=== PATIENT | male | born 1980 | race Caucasian/White ===

== ENCOUNTER 2020-05-04 12:16 | Emergency (ER) | payer BC, OTHER ==
[~2020-05-04] VITALS: Ht 182 cm; Wt 82.0 kg
--- NOTE | 2020-05-04 12:50 | NUR ---
PT REFUSING COVID SCREENING AT THIS X
[2020-05-04 12:58] LABS: BASOPHILS % (AUTO) 0 % (0-10); EOSINOPHILS # (AUTO) 0.2 10^3/uL (0.0-0.3); EOSINOPHILS % (AUTO) 3 % (0-10); HEMATOCRIT 44 % (40-54); LYMPHOCYTES # (AUTO) 2.2 X 10^3 (1.0-4.0); LYMPHOCYTES % (AUTO) 33 % (12-44); MEAN CORPUSCULAR HEMOGLOBIN 30 PG (25-34); MEAN CORPUSCULAR HGB CONC 35 G/DL (32-36); MEAN CORPUSCULAR VOLUME 88 FL (80-99); MEAN PLATELET VOLUME 9.5 FL (7.4-10.4); MONOCYTES # (AUTO) 0.6 X 10^3 (0.0-1.0); MONOCYTES % (AUTO) 9 % (0-12); NEUTROPHILS # (AUTO) 3.6 X 10^3 (1.8-7.8); NEUTROPHILS % (AUTO) 54 % (42-75); PLATELET COUNT 264 10^3/uL (130-400); RED CELL DISTRIBUTION WIDTH 12.5 % (10.0-14.5); WHITE BLOOD COUNT 6.6 10^3/uL (4.3-11.0)
[2020-05-04] MEDS ORDERED: OMEP10SU2 PO (12:59)
[2020-05-04] MEDS ORDERED: ASPIRIN 81 MG CHEW (CHILDREN'S ASA) PO ONE (13:00)
--- NOTE | 2020-05-04 13:00 | NUR ---
pt co of leg tiredness
--- NOTE | 2020-05-04 13:05 | ED Chest Pain ---
General Chief Complaint: Chest Pain Stated Complaint: CP;SOA History of Present Illness Date Seen by Provider: May 04, 2020 Time Seen by Provider: 12:45 Initial Comments 39 year old male presents for chest pain, pressure, and electrical shock that took his breath away. It happened at approximately 11:30 this morning and lasted 10 min. This is the 5th time he experienced these symptoms, it occurs about once a month, last time was early March. He did not seek healthcare. He drank several glasses of water this morning but did feel hot and get diaphoretic before the chest pain, no nausea. Hx of rib fractures 2 months ago. He takes multiple supplements, last night he tried [place] for headache. He takes a supplement for stress but doesn't feel anxious or under more stress than normal. No hx of DM or CAD, does have GI ulcer and takes prilosec. He slept last night, with no problems. Occ non productive cough, no fevers or known COVID-19 exposure but he works with the public, selling machine equipment. Right rib fxs 2 months ago, after falling due to his dog. Patient also had intermittent weakness in his legs. It will last 5-10 min, then resolve. Denies history of back problems, no bowel or bladder incontinence or retention. Denies symptoms at this time. 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 NTG SL DOUBLE HEAD MACHINE OPERATOR: No Associated Symptoms: No abdominal pain, No back pain, No diaphoresis, No dizziness, No edema, No fatigue, No fever/chills, No headache, No heartburn, No nausea/vomiting, No rash; shortness of breath; No syncope, No weakness Allergies and Home Medications Allergies Coded Allergies: latex (Verified Allergy, Unknown, 05/04/20) ragweed pollen (Verified Allergy, Unknown, 05/04/20) Patient Home Medication List Home Medication List Reviewed: Yes Review of Systems Review of Systems Constitutional: no symptoms reported, see HPI; No fever Respiratory: See HPI, Shortness of Air Cardiovascular: See HPI, Chest Pain All Other Systems Reviewed Negative Unless Noted: Yes Past Vexpywb-Mvulmf-Jsadmm Hx Past Med/Social Hx: Reviewed Nursing Past Med/Soc Hx Patient Social History Alcohol Use: Denies Use Recreational Drug Use: No Smoking Status: Never a Smoker Recent Hopitalizations: No Physical Abuse: No Sexual Abuse: No Past Medical History Surgeries: No Respiratory: No Cardiac: No Neurological: No Genitourinary: No Gastrointestinal: No Musculoskeletal: No Endocrine: No HEENT: No Cancer: No Psychosocial: No Integumentary: No Physical Exam Vital Signs Vital Signs - First Documented 05/04/20 05/04/20 12:25 15:33 Temp 36.9 Pulse 98 Resp 18 B/P (MAP) 134/91 (105) Pulse Ox 100 O2 Delivery Room Air Capillary Refill : Less Than 3 Seconds Height, Weight, BMI Height: '" Weight: lbs. oz. kg; BMI Method: General Appearance: No Apparent Distress, WD/WN HEENT: PERRL/EOMI, TMs Normal, Normal ENT Inspection, Pharynx Normal Neck: Full Range of Motion, Normal Inspection, Non Tender, Supple Respiratory: Chest Non Tender, Lungs Clear, Normal Breath Sounds, No Respiratory Distress Cardiovascular: Regular Rate, Rhythm, No Edema, No Murmur, Normal Peripheral Pulses Gastrointestinal: Normal Bowel Sounds, Non Tender, Soft Extremity: Normal Capillary Refill, Normal Inspection, Normal Range of Motion, Non Tender, No Pedal Edema, Other (Resisted flex and ext of legs V/V. ) Neurologic/Psychiatric: Alert, Oriented x3, No Motor/Sensory Deficits, Normal Mood/Affect Skin: Normal Color, Warm/Dry; No Rash Progress/Results/Core Measures Results/Orders Lab Results Laboratory Tests Test 05/04/20 12:40 05/04/20 13:19 05/04/20 13:26 05/04/20 14:46 Range/Units White Blood Count 6.6 4.3-11.0 10^3/uL Red Blood Count 4.96 4.35-5.85 10^6/uL Hemoglobin 15.0 13.3-17.7 G/DL Hematocrit 44 40-54 % Mean Corpuscular Volume 88 80-99 FL Mean Corpuscular Hemoglobin 30 25-34 PG Mean Corpuscular Hemoglobin Concent 35 32-36 G/DL Red Cell Distribution Width 12.5 10.0-14.5 % Platelet Count 264 130-400 10^3/uL Mean Platelet Volume 9.5 7.4-10.4 FL Neutrophils (%) (Auto) 54 42-75 % Lymphocytes (%) (Auto) 33 12-44 % Monocytes (%) (Auto) 9 0-12 % Eosinophils (%) (Auto) 3 0-10 % Basophils (%) (Auto) 0 0-10 % Neutrophils # (Auto) 3.6 1.8-7.8 X 10^3 Lymphocytes # (Auto) 2.2 1.0-4.0 X 10^3 Monocytes # (Auto) 0.6 0.0-1.0 X 10^3 Eosinophils # (Auto) 0.2 0.0-0.3 10^3/uL Basophils # (Auto) 0.0 0.0-0.1 10^3/uL Erythrocyte Sedimentation Rate 2 0-15 MM/HR Prothrombin Time 12.2 12.2-14.7 SEC INR Comment 0.9 0.8-1.4 Activated Partial Thromboplast Time 30 24-35 SEC D-Dimer < 0.27 0.00-0.49 UG/ML Sodium Level 138 135-145 MMOL/L Potassium Level 3.2 L 3.6-5.0 MMOL/L Chloride Level 103 98-107 MMOL/L Carbon Dioxide Level 22 21-32 MMOL/L Anion Gap 13 5-14 MMOL/L Blood Urea Nitrogen 10 7-18 MG/DL Creatinine 0.78 0.60-1.30 MG/DL Estimat Glomerular Filtration Rate > 60 BUN/Creatinine Ratio 13 Glucose Level 96 70-105 MG/DL Calcium Level 9.2 8.5-10.1 MG/DL Corrected Calcium 8.5-10.1 MG/DL Magnesium Level 2.1 1.6-2.4 MG/DL Total Bilirubin 0.6 0.1-1.0 MG/DL Aspartate Amino Transf (AST/SGOT) 32 5-34 U/L Alanine Aminotransferase (ALT/SGPT) 39 0-55 U/L Alkaline Phosphatase 128 40-136 U/L Lactate Dehydrogenase 203 125-220 U/L Myoglobin 23.6 10.0-92.0 NG/ML Troponin I < 0.028 < 0.028 <0.028 NG/ML C-Reactive Protein High Sensitivity 0.08 0.00-0.50 MG/DL B-Type Natriuretic Peptide 16.9 <100.0 PG/ML Total Protein 8.0 6.4-8.2 GM/DL Albumin 4.8 H 3.2-4.5 GM/DL Amylase Level 63 25-125 U/L Lipase 57 8-78 U/L Procalcitonin 0.01 <0.10 NG/ML Urine Color YELLOW Urine Clarity CLEAR Urine pH 7.5 5-9 Urine Specific [place] 1.015 L 1.016-1.022 Urine Protein NEGATIVE NEGATIVE Urine Glucose (UA) NEGATIVE NEGATIVE Urine Ketones TRACE H NEGATIVE Urine Nitrite NEGATIVE NEGATIVE Urine Bilirubin NEGATIVE NEGATIVE Urine Urobilinogen 0.2 < = 1.0 MG/DL Urine Leukocyte Esterase NEGATIVE NEGATIVE Urine RBC (Auto) NEGATIVE NEGATIVE Urine RBC NONE /HPF Urine WBC NONE /HPF Urine Squamous Epithelial Cells NONE /HPF Urine Crystals NONE /LPF Urine Bacteria NEGATIVE /HPF Urine Casts NONE /LPF Urine Mucus NEGATIVE /LPF Urine Culture Indicated NO Micro Results Microbiology 05/04/20 Influenza Types A,B Antigen (SARAH) - Final, Complete My Orders Orders - MARCEL SIEGEL Cbc With Automated Diff (05/04/20 12:41) Magnesium (05/04/20 12:41) Chest 1 View, Ap/Pa Only (05/04/20 12:41) Ekg Tracing (05/04/20 12:41) Comprehensive Metabolic Panel (05/04/20 12:41) Myoglobin Serum (05/04/20 12:41) Protime With Inr (05/04/20 12:41) Partial Thromboplastin Time (05/04/20 12:41) O2 (05/04/20 12:41) Monitor-Rhythm Ecg Trace Only (05/04/20 12:41) Ed Iv/Invasive Line Start (05/04/20 12:41) Lipase (05/04/20 12:41) Amylase (05/04/20 12:41) BNP (05/04/20 12:41) Fibrin Degradation Products (05/04/20 12:43) Procalcitonin (Pct) (05/04/20 12:43) Erythrocyte Sedimentation Rate (05/04/20 12:43) Influenza A And B Antigens (05/04/20 12:43) Coronavirus Sars-Cov-2 So 2018 (05/04/20 12:43) Parainfluenza Virus 1,2,3 Pcr (05/04/20 12:43) Aspirin Chewable Tablet (Baby Aspirin Ch (05/04/20 13:00) Hs C Reactive Protein (05/04/20 12:40) LDH (05/04/20 12:40) Troponin I (05/04/20 12:40) Ed Iv/Invasive Line Start (05/04/20 13:06) Ed Iv/Invasive Line Start (05/04/20 13:06) Lactated Ringers (Lr 1000 Ml Iv Solution (05/04/20 13:06) Ua Culture If Indicated (05/04/20 13:08) Potassium Chloride (Tablet) (Klor Con Ta (05/04/20 13:35) Troponin I (05/04/20 14:51) Medications Given in ED Current Medications Medications Dose Ordered Sig/Evin Route Start Time Stop Time Status Last Admin Dose Admin Aspirin 324 mg ONCE ONCE PO 05/04/20 13:00 05/04/20 13:01 DC 05/04/20 13:15 324 MG Lactated Ringer's 1,000 ml @ 0 mls/hr Q0M ONCE IV 05/04/20 13:06 05/04/20 13:08 DC 05/04/20 13:18 1,000 MLS/HR Vital Signs/I&O 05/04/20 05/04/20 12:25 15:33 Temp 36.9 Pulse 98 81 Resp 18 15 B/P (MAP) 134/91 (105) 121/84 Pulse Ox 100 99 O2 Delivery Room Air Progress Progress Note : Time: 12:45 Progress Note Patient seen and evaluated, will obtain labs, EKG and chest x-ray. Aspirin 324 mg orally. LR one liter. 1230 chest x-ray, EKG and labs all within normal limits. Will give potassium 10 mEq for K+ of 3.[address] Galvin and assessment, will plan 4 hour Troponin, if normal will discharge. 1330 Continues to be pain free, no complaints. 1400 ambulated to bathroom, no weakness, palpitations or chest pain. 1430 will obtain follow up troponin, no requests or complaints at this time. 1525 Repeat troponin neg. discharge instructions and return precautions reviewed with patient. All questions answered. Initial ECG Impression Date: May 04, 2020 Initial ECG Impression Time: 12:26 Initial ECG Rate: 95 Initial ECG Rhythm: Normal Sinus Initial ECG Intervals: Normal Initial ECG Intervals FL 156, QRSD 100, QT 380, QTC 478. [place] P 36, QRS 13, T 41. Initial ECG Impression: Normal Initial ECG Comparisson: No Previous ECG Available Comment Reviewed with Dr. Galvin, agreed with Normal SR. Diagnostic Imaging Diagonstic Imaging: Xray Plain Films/CT/US/NM/MRI: chest Comments NAME: JONNA HERNANDEZ [facility] REC#: [id number] PT STATUS: REG ER : 1980 PHYSICIAN: MARCEL SIEGEL ADMIT DATE: 05/04/20/ER Draft Date of Exam:05/04/20 CHEST 1 VIEW, AP/PA ONLY INDICATION: Chest pain FINDINGS: The lungs clear. The heart size and vascularity are normal. No failure, effusion or pneumothorax. IMPRESSION: Negative. Dictated on workstation # [id number] Dict: 05/04/20 1333 Trans: 05/04/20 1336 [facility] [id number] Interpreted by: JESSE GUTIERREZ Electronically signed by: Reviewed: Reviewed by Me Departure Impression Primary Impression: Chest pain not due to acute coronary syndrome Additional Impressions: Palpitation PUI COVID Disposition: HOME, SELF-CARE Condition: Improved Departure-Patient Inst. Decision time for Depature: 15:00 [address]errals: [facility]/Anup DINH MD Patient Instructions: Chest Pain That Is Not Caused by the Heart (DC), Palpitations (DC) Add. Discharge Instructions: Take Aspirin 81 mg daily, enteric coated. Continue to rest and take it easy. Alternate between ibuprofen 600 mg and Tylenol 650 mg every 4 hours for pain or fever. Quarantine to home, until you are notified about your COVID test. Have family members stay home, until your results are final. Establish care at [facility]. Call Dr. Galvin for evaluation of the 5 episodes of chest pain, electric shock and shortness of breath. Return to the ER for new, urgent healthcare problems. All discharge instructions reviewed with patient and/or family. Voiced understanding. Work/School Note: Work Release Form Date Seen in the Emergency Department: May 04, 2020 Other Restrictions Listed Below: Needs negative COVID-19 prior to return to work. Copy Copies To 1: Anup GALVIN MD, AMY ARNP May 04, 2020 13:05
[2020-05-04] MEDS ORDERED: LACTATED RINGERS 1,000 ML IV ONE (13:06)
[2020-05-04 13:20] LABS: ALANINE AMINOTRANSFERASE 39 U/L (0-55); ALBUMIN 4.8 GM/DL (3.2-4.5); ALKALINE PHOSPHATASE 128 U/L (40-136); AMYLASE 63 U/L (25-125); BILIRUBIN,TOTAL 0.6 MG/DL (0.1-1.0); BUN/CREATININE RATIO 13; CALCIUM 9.2 MG/DL (8.5-10.1); CARBON DIOXIDE 22 MMOL/L (21-32); CHLORIDE 103 MMOL/L (98-107); CREATININE SERUM 0.78 MG/DL (0.60-1.30); GFR ESTIMATED > 60; GLUCOSE 96 MG/DL (70-105); LIPASE 57 U/L (8-78); MAGNESIUM 2.1 MG/DL (1.6-2.4); POTASSIUM 3.2 MMOL/L (3.6-5.0); SODIUM 138 MMOL/L (135-145)
--- NOTE | 2020-05-04 13:26 | NUR ---
1326 PT AGREED ON COVID SCREENING
--- NOTE | 2020-05-04 13:30 | NUR ---
PT STATES NUMBNESS HAS GONE AWAY AND IMPROVED
[2020-05-04 13:32] LABS: INR 0.9 (0.8-1.4); PROTHROMBIN TIME PATIENT 12.2 SEC (12.2-14.7)
[2020-05-04] MEDS ORDERED: KCL 10 MEQ TAB (MICRO K) PO STA (13:35)
--- NOTE | 2020-05-04 13:37 | Diagnostic Imaging Report ---
INDICATION: Chest pain FINDINGS: The lungs clear. The heart size and vascularity are normal. No failure, effusion or pneumothorax. IMPRESSION: Negative. Dictated by: Dictated on workstation # [id number]
[2020-05-04 13:41] LABS: BILIRUBIN,URINE NEGATIVE (NEGATIVE); CLARITY,URINE CLEAR; COLOR,URINE YELLOW; GLUCOSE, URINE (UA) NEGATIVE (NEGATIVE); KETONES,URINE TRACE (NEGATIVE); LEUKOCYTE ESTERASE ,URINE NEGATIVE (NEGATIVE); NITRITE,URINE NEGATIVE (NEGATIVE); PH,URINE 7.5 (5-9); PROTEIN,URINE NEGATIVE (NEGATIVE)
[2020-05-04 14:05] LABS: BACTERIA,URINE NEGATIVE /HPF
--- OUTSIDE RECORDS SUMMARY | 2020-05-04 14:14 | XMS REPORT | Continuity of Care Document ---
Demographics Preferred Language Unknown Marital Status Unknown Yazidi Affiliation Unknown Race Unknown Ethnic Group Unknown Author Organization Unknown Address Unknown Phone Unavailable Allergies There is no data. Medications There is no data. Problems There is no data. Procedures There is no data. Results Test Result Range Complete blood count (CBC) with automate d white blood cell (WBC) differential - 05/04/20 12:40 Blood leukocytes automated count (number/volume) 6.6 10*3/uL 4.3-11.0 Blood erythrocytes automated count (number/volume) 4.96 10*6/uL 4.35-5.85 Venous blood hemoglobin measurement (mass/volume) 15.0 g/dL 13.3-17.7 Blood hematocrit (volume fraction) 44 % 40-54 Automated erythrocyte mean corpuscular volume 88 [ foz_us] 80-99 Automated erythrocyte mean corpuscular h emoglobin (mass per erythrocyte) 30 pg 25-34 Automated erythrocyte mean corpuscular h emoglobin concentration measurement (mass/volume) 35 g/dL 32-36 Automated erythrocyte distribution width ratio 12. 5 % 10.0- 14.5 Automated blood platelet count (count/volume) 264 10*3/uL 130-400 Automated blood platelet mean volume measurement 9.5 [foz_us] 7.4-10.4 Automated blood neutrophils/100 leukocytes 54 % 42-75 Automated blood lymphocytes/100 leukocytes 33 % 12-44 Blood monocytes/100 leukocytes 9 % 0-12 Automated blood eosinophils/100 leukocytes 3 % 0-10 Automated blood basophils/100 leukocytes 0 % 0-10 Blood neutrophils automated count (number/volume) 3.6 10*3 1.8-7.8 Blood lymphocytes automated count (number/volume) 2.2 10*3 1.0-4.0 Blood monocytes automated count (number/volume) 0. 6 10*3 0.0-1.0 Automated eosinophil count 0.2 10*3/uL 0 .0-0.3 Automated blood basophil count (count/volume) 0.0 10*3/uL 0.0-0.1 Erythrocyte sedimentation rate by luan gren method - 06/16/20 12:40 Erythrocyte sedimentation rate by westergren method 2 mm 0- 15 Comprehensive metabolic panel - 05/04/20 12:40 Serum or plasma sodium measurement (moles/volume) 138 mmol/L 135-145 Serum or plasma potassium measurement (moles/volume) 3.2 mmol/L 3.6-5.0 Serum or plasma chloride measurement (moles/volume) 103 mmol/L 98-107 Carbon dioxide 22 mmol/L 21-32 Serum or plasma anion gap determination (moles/volume) 13 mmol/L 5-14 Serum or plasma urea nitrogen measurement (mass/volume ) 10 mg/dL 7-18 Serum or plasma creatinine measurement (mass/volume) 0.78 mg/dL 0.60-1.30 Serum or plasma urea nitrogen/creatinine mass ratio 13 NRG Serum or plasma creatinine measurement w ith calculation of estimated glomerular filtration rate > NRG Serum or plasma glucose measurement (mass/volume) 96 mg/dL 70-105 Serum or plasma calcium measurement (mass/volume) 9.2 mg/dL 8.5-10.1 Serum or plasma total bilirubin measurement (mass/volu me) 0.6 mg/dL 0.1-1.0 Serum or plasma alkaline phosphatase kayleigh surement (enzymatic activity/volume) 128 U/L 40-136 Serum or plasma aspartate aminotransfera se measurement (enzymatic activity/volume) 32 U/L 5-34 Serum or plasma alanine aminotransferase measurement (enzymatic activity/volume) 39 U/L 0-55 Serum or plasma protein measurement (mass/volume) 8.0 g/dL 6.4-8.2 Serum or plasma albumin measurement (mass/volume) 4.8 g/dL 3.2-4.5 Magnesium - 05/04/20 12:40 Magnesium 2.1 mg/dL 1.6-2.4 Serum ragweed IgE antibody assay - 05/04 12:40 Serum ragweed IgE antibody assay 203 U/L 125-220 Serum or plasma troponin i.cardiac measu rement (mass/volume) - 05/04/20 12:40 Serum or plasma troponin i.cardiac measurement (mass/v olume) < ng/mL <0.028 Myoglobin, serum - 05/04/20 12:40 Myoglobin, serum 23.6 ng/mL 10.0-92.0 Serum or plasma amylase measurement (enz ymatic activity/volume) - 05/04/20 12:40 Serum or plasma amylase measurement (enzymatic activit y/volume) 63 U/L 25-125 Serum or plasma lithium measurement (mol es/volume) - 05/04/20 12:40 BNP PT 16.9 pg/mL <100.0 Lipase - 05/04/20 12:40 Lipase 57 U/L 8-78 Serum or plasma C reactive protein measu rement (mass/volume) - 05/04/20 12:40 Serum or plasma C reactive protein measurement (mass/v olume) 0.08 mg/dL 0.00-0.50 PT panel in platelet poor plasma by coag ulation assay - 05/04/20 12:40 Prothrombin time (PT) in platelet poor plasma by coagu lation assay 12.2 s 12.2-14.7 INR in platelet poor plasma or blood by coagulation as say 0.9 0.8-1.4 Activated partial thromboplastin time (a PTT) in platelet poor plasma bycoagulation assay - 05/04/20 12:40 Activated partial thromboplastin time (a PTT) in platelet poor plasma bycoagulation assay 30 s 24-35 Fibrin D-dimer FEU measurement in platel et poor plasma (mass/volume) - 05/04/20 12:40 Fibrin D-dimer FEU measurement in platelet poor plasma (mass/volume) < ug/mL 0.00-0.49 PROCALCITONIN (PCT) - 05/04/20 12:40 PROCALCITONIN (PCT) 0.01 ng/mL <0.10 Complete urinalysis with reflex to cultu re - 05/04/20 13:19 Urine color determination YELLOW NRG Urine clarity determination CLEAR NR G Urine pH measurement by test strip 7.5 5-9 Specific gravity of urine by test strip 1.015 1.016-1.022 Urine protein assay by test strip, semi-quantitative NEGATIVE NEGATIVE Urine glucose detection by automated test strip NE GATIVE NEGATIVE Erythrocytes detection in urine sediment by light micr oscopy NEGATIVE NEGATIVE Urine ketones detection by automated test strip TR JULIET NEGATIVE Urine nitrite detection by test strip NEGATIVE NEGATIVE Urine total bilirubin detection by test strip NEGA TIVE NEGATIVE Urine urobilinogen measurement by automated test strip (mass/volume) 0.2 mg/dL < = 1.0 Urine leukocyte esterase detection by dipstick NEG ATIVE NEGATIVE Automated urine sediment erythrocyte cou nt by microscopy (number/high power field) NONE NRG Automated urine sediment leukocyte count by microscopy (number/high power field) NONE NRG Bacteria detection in urine sediment by light microsco py NEGATIVE NRG Squamous epithelial cells detection in u rine sediment by light microscopy NONE NRG Crystals detection in urine sediment by light microsco py NONE NRG Casts detection in urine sediment by light microscopy NONE NRG Mucus detection in urine sediment by light microscopy NEGATIVE NRG Complete urinalysis with reflex to culture NO NRG Encounters ACCT No. Visit Date/Time Discharge Status Pt. Type Provider Facility Loc./Unit Complaint [id number] 05/04/2020 12:58:00 Document Registration
[2020-05-04 15:33] VITALS: BP 121/84
== END 2020-05-04 15:33 | disposition home or self-care (01) ==
LOC: EDUNIT# 12:16 → ER 12:19
DX: R07.89 Other chest pain (principal); R00.2 Palpitations; Z20.828 Contact with and (suspected) exposure to other viral communicable diseases; Z91.040 Latex allergy status
CPT/HCPCS: 71045; 80053; 81000; 82150; 83615; 83690; 83735; 83874; 83880; 84145; 84484; 85025; 85379; 85610; 85652; 85730; 86141; 87804; 93005; 93041; 99284; U0002; 36415; 87635